=== PATIENT | female | born 1995 | race Caucasian/White ===

== ENCOUNTER 2022-04-07 22:07 | Emergency (ER) | payer SELFPAY ==
[~2022-04-07] VITALS: Ht 170.2 cm; Wt 115.9 kg
[2022-04-07 23:17] LABS: BASO % 0.4 % (0.0-1.0); EOS # 0.2 10^3/uL (0.0-0.5); EOS % 1.8 % (0.0-3.0); HEMOGLOBIN 12.4 g/dl (12.0-15.5); LYMPH # 2.5 10^3/uL (1.5-5.0); LYMPH % 22.6 % (24.0-44.0); MEAN CORPUSCULAR HEMOGLOBIN 27.3 pg (27.0-33.0); MEAN CORPUSCULAR HGB CONC 33.5 g/dl (32.0-36.5); MEAN CORPUSCULAR VOLUME 81.3 fl (80.0-96.0); MONO # 0.8 10^3/uL (0.0-0.8); MONO % 7.5 % (2.0-8.0); NEUTROPHILS # 7.5 10^3/uL (1.5-8.5); NEUTROPHILS % 67.3 % (36.0-66.0); PLATELET COUNT, AUTOMATED 362 10^3/uL (150-450); RED BLOOD COUNT 4.55 10^6/uL (4.00-5.40); WHITE BLOOD COUNT 11.1 10^3/uL (4.0-10.0)
[2022-04-08 00:08] LABS: BLOOD UREA NITROGEN 10 MG/DL (7-18); CARBON DIOXIDE LEVEL 23 MEQ/L (21-32); CHLORIDE LEVEL 108 MEQ/L (98-107); CREATININE FOR GFR 0.71 MG/DL (0.55-1.30); GLOMERULAR FILTRATION RATE > 60.0 (>60); GLUCOSE, FASTING 101 MG/DL (70-100); HCG, SERUM QUANTITATIVE 18114 MIU/ML; POTASSIUM SERUM 3.7 MEQ/L (3.5-5.1); SODIUM LEVEL 139 MEQ/L (136-145)
[2022-04-08 01:44] VITALS: BP 166/99
== END 2022-04-08 04:46 | disposition left against medical advice (07) ==
LOC: M ED 22:07
DX: Z53.29 Procedure and treatment not carried out because of patient's decision for other reasons (principal)

== ENCOUNTER 2022-08-06 14:56 | Outpatient (CLI) | payer OTHER, SELFPAY ==
[2022-08-06] VITALS (11 sets, daily range): BP systolic 115–150; BP diastolic 55–88
[~2022-08-06] VITALS: Ht 170.2 cm; Wt 123.4 kg
[2022-08-06] MEDS ORDERED: ACET-683 PO (15:32)
[2022-08-06] MEDS ORDERED: ASPI81CH33 PO (15:33)
[2022-08-06] MEDS ORDERED: PRENTAB9 PO (15:33)
[2022-08-06] MEDS ORDERED: SYNT50TA PO (15:33)
[2022-08-06] MEDS ORDERED: HOME MED LIST COMPLETE! XX SCH (15:35)
[2022-08-06 16:20] LABS: CREATININE,RANDOM URINE 13.7 MG/DL
[2022-08-06 16:22] LABS: HEMATOCRIT 34.6 % (36.0-47.0); HEMOGLOBIN 11.5 g/dl (12.0-15.5); MEAN CORPUSCULAR HEMOGLOBIN 26.7 pg (27.0-33.0); MEAN CORPUSCULAR HGB CONC 33.2 g/dl (32.0-36.5); MEAN CORPUSCULAR VOLUME 80.5 fl (80.0-96.0); PLATELET COUNT, AUTOMATED 353 10^3/uL (150-450)
[2022-08-06 17:14] LABS: ALT/SGPT 20 U/L (7.0-40); AST/SGOT 16 U/L (<34); BILIRUBIN,TOTAL 0.2 MG/DL (0.3-1.2); CREATININE FOR GFR 0.45 MG/DL (0.55-1.30); GLOMERULAR FILTRATION RATE > 60.0 (>60); LDH LACTATE DEHYDROGENASE 115 U/L (120-246); URIC ACID 3.9 MG/DL (3.1-7.8)
== END 2022-08-06 19:12 | disposition home or self-care (01) ==
LOC: M LDO 14:56
PROVIDERS: ATTEND Advanced Practice Midwife
DX: O26.893 Other specified pregnancy related conditions, third trimester (principal); R42 Dizziness and giddiness; R51.9 Headache, unspecified; Z3A.23 23 weeks gestation of pregnancy
CPT/HCPCS: 36415; 59025; 82247; 82565; 82570; 83615; 84156; 84450; 84460; 84550; 85027; 87486; 87581; 87633; 87798; G0463

== ENCOUNTER → 2022-08-08 | Outpatient (REF) | payer OTHER, SELFPAY ==
[~2022-08-08] MED LIST: ACET-683 PO; ASPI81CH33 PO; PRENTAB9 PO; SYNT50TA PO
[2022-08-08 12:08] LABS: URINE TOTAL PROTEIN 7.9 MG/DL (0-14)
[2022-08-08 18:53] LABS: TOTAL PROTEIN 24 HOUR URINE 197.5 MG/24HR (50-80)
== END ==
LOC: M LAB REF 10:48
PROVIDERS: ATTEND Obstetrics & Gynecology
DX: O13.9 Gestational [pregnancy-induced] hypertension without significant proteinuria, unspecified trimester (principal)

== ENCOUNTER 2022-09-26 16:17 | Outpatient (CLI) | payer OTHER ==
[~2022-09-26] VITALS: Ht 170.2 cm; Wt 126.8 kg
[2022-09-26 16:34] VITALS: BP 111/56
[2022-09-26] MEDS ORDERED: FLINCHW12 PO (16:39)
[2022-09-26] MEDS ORDERED: SYNT75TA PO (16:39)
[2022-09-26] MEDS ORDERED: VITA100T59 PO (16:39)
[2022-09-26] MEDS ORDERED: HOME MED LIST COMPLETE! XX SCH (16:40)
[2022-09-26 17:21] LABS: APPEARANCE, URINE MANUAL CLEAR (CLEAR); COLOR, URINE MANUAL YELLOW (YELLOW)
[2022-09-26 17:22] LABS: BILIRUBIN, URINE MANUAL NEGATIVE (NEGATIVE); BLOOD URINE MANUAL NEGATIVE (NEGATIVE); GLUCOSE, URINE (UA) MANUAL NEGATIVE (NEGATIVE); KETONE, URINE MANUAL NEGATIVE (NEGATIVE); LEUKOCYTE ESTERASE, URINE MAN NEGATIVE (NEGATIVE); NITRITE, URINE MANUAL NEGATIVE (NEGATIVE); PROTEIN, URINE MANUAL NEGATIVE (NEGATIVE); UROBILINOGEN, URINE MANUAL NORMAL (NORMAL)
[2022-09-26 19:10] LABS: GC DNA AMPLIFICATION NEGATIVE (NEGATIVE)
== END 2022-09-26 17:39 | disposition home or self-care (01) ==
LOC: M LDO 16:17
PROVIDERS: ATTEND Obstetrics & Gynecology
DX: O26.893 Other specified pregnancy related conditions, third trimester (principal); R10.2 Pelvic and perineal pain; Z3A.31 31 weeks gestation of pregnancy; M54.9 Dorsalgia, unspecified; R25.2 Cramp and spasm; O99.213 Obesity complicating pregnancy, third trimester; E66.9 Obesity, unspecified; O99.283 Endocrine, nutritional and metabolic diseases complicating pregnancy, third trimester; E03.9 Hypothyroidism, unspecified; Z79.890 Hormone replacement therapy; Z91.018 Allergy to other foods
CPT/HCPCS: 59025; 81002; 87086; 87661; 87810; 87850; G0378; G0463

== ENCOUNTER 2022-11-11 18:35 | Inpatient (IN) | payer OTHER ==
[~2022-11-11] VITALS: Ht 167.6 cm; Wt 132.2 kg
[2022-11-11] VITALS (9 sets, daily range): BP systolic 101–140; BP diastolic 57–82
[~2022-11-11 18:35] MED LIST changes: +FLINCHW12 PO; +SYNT75TA PO; +VITA100T59 PO
[2022-11-11 19:20] LABS: HEMATOCRIT 35.7 % (36.0-47.0); HEMOGLOBIN 11.9 g/dl (12.0-15.5); MEAN CORPUSCULAR HEMOGLOBIN 26.6 pg (27.0-33.0); MEAN CORPUSCULAR HGB CONC 33.3 g/dl (32.0-36.5); MEAN CORPUSCULAR VOLUME 79.9 fl (80.0-96.0); PLATELET COUNT, AUTOMATED 288 10^3/uL (150-450); RED BLOOD COUNT 4.47 10^6/uL (4.00-5.40); WHITE BLOOD COUNT 11.8 10^3/uL (4.0-10.0)
[2022-11-11 19:37] LABS: TOTAL PROTEIN,RANDOM URINE 15.8 MG/DL (0.0-14.0)
[2022-11-11 19:39] LABS: URIC ACID 5.1 MG/DL (3.1-7.8)
[2022-11-11 19:41] LABS: LDH LACTATE DEHYDROGENASE 141 U/L (120-246)
[2022-11-11 19:42] LABS: ALT/SGPT 31 U/L (7.0-40); AST/SGOT 32 U/L (<34); BILIRUBIN,TOTAL 0.3 MG/DL (0.3-1.2); CREATININE FOR GFR 0.47 MG/DL (0.55-1.30); GLOMERULAR FILTRATION RATE > 60.0 (>60)
[2022-11-11] MEDS ORDERED: METOCLOPRAMIDE 10MG TAB PO ONE (20:00)
[2022-11-11] MEDS ORDERED: diphenhydrAMINE 25MG CAP PO ONE (20:00)
[2022-11-11] MEDS ORDERED: METHYLERGONOVINE MALEATE 0.2MG/ML 1ML VIAL IM PRN (20:40)
[2022-11-11] MEDS ORDERED: TRANEXAMIC ACID INJection 1,000 MG in NS 100 ML IV PRN (20:40)
[2022-11-11] MEDS ORDERED: OXYTOCIN DRIP 30 UNITS in IV 1 EA IV PRN ×4 (20:40)
[2022-11-11] MEDS ORDERED: LR 1,000 ML IV SCH (20:40)
[2022-11-11] MEDS ORDERED: LIDOCAINE 1% MDV 20ML VIAL INFIL PRN (20:40)
[2022-11-11] MEDS: miSOPROStol 25MCG 1/4 TABLET PO SCH (21:37)
[2022-11-12] VITALS (24 sets, daily range): BP systolic 102–164; BP diastolic 56–88
[2022-11-12] MEDS: miSOPROStol 25MCG 1/4 TABLET PO SCH ×5 (01:45→18:33)
[2022-11-12] MEDS ORDERED: HOME MED LIST COMPLETE! XX SCH (08:10)
[2022-11-12] MEDS: ONDANSETRON 4MG 2ML VIAL IV PRN ×2 (08:14→20:18)
[2022-11-12] MEDS: LEVOTHYROXINE 75MCG TABLET (0.075MG) PO SCH (08:22)
[2022-11-12] MEDS: ACETAMINOPHEN 500 MG TAB PO PRN ×2 (10:27→18:33)
[2022-11-12] MEDS ORDERED: OXYTOCIN DRIP 30 UNITS in IV 1 EA IV SCH (21:30)
[2022-11-12] MEDS: PROMETHAZINE 25MG/ML 1ML VIAL IV PRN (22:12)
[2022-11-12] MEDS: BUTORPHANOL 2 MG/ML 1ML VIAL IV PRN (22:13)
[2022-11-12] MEDS: LR 1,000 ML IV SCH (22:20)
[2022-11-13] VITALS (55 sets, daily range): BP systolic 113–173; BP diastolic 56–105
[2022-11-13] MEDS: LR 1,000 ML IV SCH ×3 (03:11→15:43)
[2022-11-13] MEDS: PROMETHAZINE 25MG/ML 1ML VIAL IV PRN ×2 (04:02→10:23)
[2022-11-13] MEDS: BUTORPHANOL 2 MG/ML 1ML VIAL IV PRN ×2 (04:03→08:08)
[2022-11-13] MEDS: LEVOTHYROXINE 75MCG TABLET (0.075MG) PO SCH (06:22)
[2022-11-13] MEDS ORDERED: VITA500C24 PO (07:42)
[2022-11-13] MEDS ORDERED: FLINCHW2 PO (07:42)
[2022-11-13] MEDS: ONDANSETRON 4MG 2ML VIAL IV PRN (15:17)
[2022-11-13] MEDS ORDERED: ePHEDrine SULFATE 25 MG/5 ML(5MG/ML) SYRINGE IVP PRN (16:15)
[2022-11-13] MEDS ORDERED: EPIDURAL/PCA KEYS XX PRN (16:15)
[2022-11-13] MEDS ORDERED: NALOXONE INJ 0.4MG/1ML VIAL IV PRN (16:15)
[2022-11-13] MEDS ORDERED: LR 500 ML IV PRN (16:15)
[2022-11-13] MEDS ORDERED: diphenhydrAMINE 50MG/ML VIAL IV PRN (16:15)
[2022-11-13] MEDS ORDERED: ONDANSETRON 4MG 2ML VIAL IV PRN (16:15)
[2022-11-13] MEDS ORDERED: FENTANYL 2MCG/ML ROPIVACAINE 0.2% IN 0.9% NACL 100ML IVBAG As Ordered ONE (16:16)
[2022-11-13] MEDS: FENTANYL/ROPIVACAINE/NACL BAG 100 ML EPIDURAL SCH (17:27)
[2022-11-13] MEDS: ACETAMINOPHEN 500 MG TAB PO PRN (21:48)
[2022-11-14] VITALS (16 sets, daily range): BP systolic 115–141; BP diastolic 56–77
[2022-11-14] MEDS: FENTANYL/ROPIVACAINE/NACL BAG 100 ML EPIDURAL SCH ×2 (01:06→12:15)
[2022-11-14] MEDS ORDERED: CALCIUM CARBONATE 500 MG CHEW U/D PO ONE (02:00)
[2022-11-14] MEDS: LR 1,000 ML IV SCH ×5 (05:30→20:12)
[2022-11-14] MEDS: LEVOTHYROXINE 75MCG TABLET (0.075MG) PO SCH (06:24)
[2022-11-14 06:34] LABS: HEMATOCRIT 36.1 % (36.0-47.0); HEMOGLOBIN 11.9 g/dl (12.0-15.5); MEAN CORPUSCULAR VOLUME 81.9 fl (80.0-96.0); PLATELET COUNT, AUTOMATED 232 10^3/uL (150-450); RED BLOOD COUNT 4.41 10^6/uL (4.00-5.40); WHITE BLOOD COUNT 11.6 10^3/uL (4.0-10.0)
[2022-11-14] MEDS ORDERED: BICITRA 30ML SOLN UDC PO ONE (06:45)
[2022-11-14] MEDS ORDERED: ceFAZolin SOD 3 GM IV Place Holder IV ONE (06:45)
[2022-11-14] MEDS ORDERED: AZITHROMYCIN INJ 500 MG, VIAL MATE ADAPTER 1 EACH in NS 250 ML IV ONE (06:45)
[2022-11-14] MEDS ORDERED: ceFAZolin SOD 1 GM in D5W MINI-BAG PLUS 50 ML IV ONE (06:50)
[2022-11-14] MEDS ORDERED: ceFAZolin SOD 2 GM in IV 1 EA IV ONE (06:50)
[2022-11-14] MEDS ORDERED: BUPIVACAINE HCL 0.25% 10ML VIAL SC ONE (08:00)
[2022-11-14] MEDS ORDERED: OXYTOCIN 30UNITS IN 0.9% NaCl 500ML IV BAG As Ordered ONE (08:23)
[2022-11-14] MEDS ORDERED: ONDANSETRON 4MG 2ML VIAL As Ordered ONE (08:49)
[2022-11-14] MEDS ORDERED: METOCLOPRAMIDE INJ 10MG/2ML VIAL As Ordered ONE (08:54)
[2022-11-14] MEDS ORDERED: PHENYLephrine 500MCG 5ML (100MCG/ML) SYRINGE As Ordered ONE (08:57)
[2022-11-14] MEDS ORDERED: ePHEDrine SULFATE 25 MG/5 ML(5MG/ML) SYRINGE As Ordered ONE (08:57)
[2022-11-14] MEDS: PRENATAL VITAMINS CHEWABLE TABLET PO SCH (09:00)
[2022-11-14] MEDS ORDERED: KETOROLAC 60MG 2ML VIAL As Ordered ONE (09:11)
[2022-11-14] MEDS ORDERED: MORPHINE PRES-FREE INJ 10 MG/10 ML VIAL As Ordered ONE (09:38)
[2022-11-14] MEDS ORDERED: RHOGAM 300MCG (1500IU) INJ IM SCH (09:45)
[2022-11-14] MEDS ORDERED: oxyCODONE 5MG TAB PO PRN ×3 (09:45→10:10)
[2022-11-14] MEDS ORDERED: SIMETHICONE 80MG CHEW TAB PO PRN (09:45)
[2022-11-14] MEDS ORDERED: MORPHINE 2 MG/ML 1ML VIAL IV PRN (09:45)
[2022-11-14] MEDS ORDERED: ACETAMINOPHEN TAB 650MG DOSE (2X325MG) PO PRN (09:45)
[2022-11-14] MEDS ORDERED: METHYLERGONOVINE MALEATE 0.2MG/ML 1ML VIAL IM PRN (09:45)
[2022-11-14] MEDS ORDERED: METOCLOPRAMIDE INJ 10MG/2ML VIAL IV PRN ×2 (09:45→10:10)
[2022-11-14] MEDS ORDERED: **NOTE PATIENT COMMENT** MISC XX SCH ×2 (10:10→12:00)
[2022-11-14] MEDS ORDERED: diphenhydrAMINE 50MG/ML VIAL IV PRN (10:10)
[2022-11-14] MEDS: SLF 3 ML SYR IV SCH ×2 (10:10→18:10)
[2022-11-14] MEDS ORDERED: fentaNYL 100 MCG/2 ML INJECTION IV PRN (10:10)
[2022-11-14] MEDS ORDERED: HYDROMORPHONE HCL 0.5 MG/ 0.5 ML SYRINGE IV PRN (10:10)
[2022-11-14] MEDS ORDERED: MEPERIDINE 25 MG/ML 1ML VIAL IV PRN (10:10)
[2022-11-14] MEDS ORDERED: NALOXONE INJ 0.4MG/1ML VIAL IV PRN ×2 (10:10)
[2022-11-14] MEDS ORDERED: ONDANSETRON 4MG 2ML VIAL IV PRN (10:10)
[2022-11-14] MEDS: KETOROLAC 30 MG/ML 1ML VIAL IV SCH ×2 (15:33→21:35)
[2022-11-14] MEDS: ENOXAPARIN 40MG/0.4ML SYRINGE (J1650 PER 10MG) SC SCH (15:34)
[2022-11-14] MEDS: NALBUPHINE HCL 10 MG/ML 1ML AMP IV PRN (16:36)
[2022-11-14] MEDS: DOCUSATE SODIUM 100MG CAPSULE PO SCH (21:35)
[2022-11-15] MEDS: LR 1,000 ML IV SCH ×6 (01:45→21:30)
[2022-11-15 02:00] VITALS: BP 137/66
[2022-11-15] MEDS: ENOXAPARIN 40MG/0.4ML SYRINGE (J1650 PER 10MG) SC SCH ×2 (04:02→16:59)
[2022-11-15] MEDS: KETOROLAC 30 MG/ML 1ML VIAL IV SCH (04:02)
[2022-11-15] MEDS: SLF 3 ML SYR IV SCH (04:03)
[2022-11-15 06:00] VITALS: BP 131/74
[2022-11-15] MEDS: LEVOTHYROXINE 75MCG TABLET (0.075MG) PO SCH (06:11)
[2022-11-15 06:15] LABS: HEMATOCRIT 32.5 % (36.0-47.0); HEMOGLOBIN 10.4 g/dl (12.0-15.5); MEAN CORPUSCULAR HEMOGLOBIN 26.3 pg (27.0-33.0); MEAN CORPUSCULAR VOLUME 82.1 fl (80.0-96.0); PLATELET COUNT, AUTOMATED 235 10^3/uL (150-450); RED BLOOD COUNT 3.96 10^6/uL (4.00-5.40)
[2022-11-15] MEDS: DOCUSATE SODIUM 100MG CAPSULE PO SCH ×2 (09:27→19:51)
[2022-11-15] MEDS: PRENATAL VITAMINS CHEWABLE TABLET PO SCH (09:27)
[2022-11-15 10:00] VITALS: BP 125/76
[2022-11-15] MEDS: IBUPROFEN 800 MG TAB PO SCH ×2 (12:14→18:53)
[2022-11-15] MEDS: NALBUPHINE HCL 10 MG/ML 1ML AMP IV PRN (12:37)
[2022-11-15] MEDS: ACETAMINOPHEN 500 MG TAB PO PRN (17:07)
[2022-11-15 18:00] VITALS: BP 155/94
[2022-11-15 22:00] VITALS: BP 142/75
[2022-11-16 00:45] VITALS: BP 127/71
[2022-11-16] MEDS: LR 1,000 ML IV SCH ×3 (01:45→09:45)
[2022-11-16] MEDS: IBUPROFEN 800 MG TAB PO SCH (03:37)
[2022-11-16] MEDS: ENOXAPARIN 40MG/0.4ML SYRINGE (J1650 PER 10MG) SC SCH (03:38)
[2022-11-16] MEDS: LEVOTHYROXINE 75MCG TABLET (0.075MG) PO SCH (05:34)
[2022-11-16 05:39] VITALS: BP 148/75
[2022-11-16] MEDS ORDERED: ACET-683 PO (08:17)
[2022-11-16] MEDS ORDERED: IBUP80TA PO (08:17)
[2022-11-16] MEDS: PRENATAL VITAMINS CHEWABLE TABLET PO SCH (08:57)
[2022-11-16] MEDS: DOCUSATE SODIUM 100MG CAPSULE PO SCH (08:57)
[2022-11-16] MEDS: ACETAMINOPHEN 500 MG TAB PO PRN (08:57)
[2022-11-16] MEDS ORDERED: MEASLES,MUMPS,RUBELLA VACCINE INJ (MMR-II) SC.IMMUN ONE (09:00)
== END 2022-11-16 13:23 | disposition home or self-care (01) | DRG 773 ==
LOC: M LDO 18:35 → M LDI 20:38 → M OBS 11-14 11:15
PROVIDERS: ADMIT Obstetrics & Gynecology; ATTEND Obstetrics & Gynecology
PROC: 3E0P7GC Introduction of Other Therapeutic Substance into Female Reproductive, Via Natural or Artificial Opening (ICD-10-PCS; 2022-11-11)
PROC: 10907ZC Drainage of Amniotic Fluid, Therapeutic from Products of Conception, Via Natural or Artificial Opening (ICD-10-PCS; 2022-11-13)
PROC: 10D00Z1 Extraction of Products of Conception, Low, Open Approach (ICD-10-PCS; principal; 2022-11-14 09:23)
DX: O14.04 Mild to moderate pre-eclampsia, complicating childbirth (principal); Z3A.37 37 weeks gestation of pregnancy; O99.284 Endocrine, nutritional and metabolic diseases complicating childbirth; E03.9 Hypothyroidism, unspecified; Z79.82 Long term (current) use of aspirin; Z79.890 Hormone replacement therapy; Z79.899 Other long term (current) drug therapy; Z91.018 Allergy to other foods; O77.0 Labor and delivery complicated by meconium in amniotic fluid; O61.0 Failed medical induction of labor; O64.0XX0 Obstructed labor due to incomplete rotation of fetal head, not applicable or unspecified; Z37.0 Single live birth